=== PATIENT | male | born 1980 | race Caucasian/White ===

== ENCOUNTER 2018-11-23 12:42 | Emergency (ER) | payer BC ==
[2018-11-23 14:13] LABS: ABS Basophils 0.1 10^3/ul (0-0.2); ABS Eosinophils 0 10^3/ul (0-0.6); ABS Lymphocytes 1.8 10^3/ul (1.0-4.8); ABS Monocytes 0.6 10^3/ul (0-0.8); ABS Neutrophils 6.2 10^3/ul (1.5-7.7); ABS Nucleated RBC 0 10^3/ul; Eosinophil % 0.4 %; Hematocrit 46 % (36-46); Lymphocyte % 20.2 %; Mean Corpuscular HGB Conc 35 g/dL (31-36); Mean Corpuscular Hemoglobin 31 pg (27-31); Mean Corpuscular Volume 90 fL (80-94); Mean Platelet Volume 8.4 fL (7.4-10.4); Nucleated Red Blood Cells % 0.1; Platelet Count 319 10^3/uL (150-450); Red Blood Count 5.11 10^6 /uL (4.18-5.48); Red Cell Distribution Width 13 % (10.5-15); White Blood Count 8.7 10^3/uL (3.5-10.8)
[2018-11-23 14:29] LABS: Troponin I 0.01 ng/mL (<0.04)
[2018-11-23 15:07] LABS: Albumin 4.5 g/dL (3.2-5.2); Albumin/Globulin Ratio 1.4 (1-3); BUN/Creatinine Ratio 15.4 (8-20); Calcium 9.7 mg/dL (8.6-10.3); EGFR African American 97.2 (>60); EGFR Non-African American 80.4 (>60); Globulin 3.2 g/dL (2-4); Total Bilirubin 0.5 mg/dL (0.2-1.0); Total Protein 7.7 g/dL (6.4-8.9)
--- NOTE | 2018-11-23 15:15 | ED ---
Palpitations / Dysrhythmia - HPI Summary HPI Summary: Patient is a 38 y/o male who presents to the ED c/o palpitations. Over the past few days hes had intermittent palpitations, described as irregular. This morning he also c/o FARIAS and fatigue. Patient went to the where an EKG revealed a slightly irregular rhythm. He denies any CP, abdominal pain, N/V, fever, rhinorrhea, sore throat, cough, or LE edema. He denies any prior hx of arrhythmia. PMHx benign thyroid nodule and HLD. FHx arrhythmia (father). - History of Current Complaint Chief Complaint: EDDysrhythmPalp Time Seen by Provider: 11/23/18 14:44 Hx Obtained From: Patient Onset/Duration: Gradual Onset, Lasting Days - 2-3 Timing: Intermittent Episodes Lasting: Character: Irregular Aggravating: Nothing Alleviating: Nothing Associated Signs & Symptoms: Negative - Allergy/Home Medications Allergies/Adverse Reactions: Allergies Allergy/AdvReac Type Severity Reaction Status Date / Time No Known Allergies Allergy Verified 11/23/18 12:48 Home Medications: Home Medications Atorvastatin* [Lipitor*] 10 mg PO DAILY 11/23/18 [History Confirmed 11/23/18] Cholecalciferol (Vitamin D3) [Vitamin D3] 1,000 unit PO DAILY 11/23/18 [History Confirmed 11/23/18] Icosapent Ethyl [Vascepa] 1 gm PO BID 11/23/18 [History Confirmed 11/23/18] PMH/Surg Hx/FS Hx/Imm Hx Endocrine/Hematology History: Reports: Hx Thyroid Disease - benign thyroid nodule Cardiovascular History: Reports: Hx Hypercholesterolemia Infectious Disease History: No Infectious Disease History: Denies: Traveled Outside the [place] in Last 30 Days - Family History Known Family History: Positive: Cardiac Disease - arrhythmia - father - Social History Alcohol Use: Occasionally Hx Substance Use: No Substance Use Type: Reports: None Hx Tobacco Use: No Smoking Status (MU): Never Smoked Tobacco Review of Systems Positive: Fatigue. Negative: Fever Negative: Sore Throat, Nasal Discharge Positive: Palpitations. Negative: Chest Pain Negative: Cough Negative: Abdominal Pain, Vomiting, Nausea Negative: Edema - LE Positive: Headache All Other Systems Reviewed And Are Negative: Yes Physical Exam - Summary Physical Exam Summary: Constitutional: Well-developed, Well-nourished, Alert. (-) Distressed Skin: Warm, Dry HENT: Normocephalic; Atraumatic Eyes: Conjunctiva normal Neck: Musculoskeletal ROM normal neck. (-) JVD, (-) Stridor, (-) Tracheal deviation Cardio: Rhythm regular, rate normal, Heart sounds normal; Intact distal pulses; The pedal pulses are 2+ and symmetric. Radial pulses are 2+ and symmetric. (-) Murmur Pulmonary/Chest wall: Effort normal. (-) Respiratory distress, (-) Wheezes, (-) Rales Abd: Soft, (-) tenderness, (-) Distension, (-) Guarding, (-) Rebound Musculoskeletal: (-) Edema Lymph: (-) Cervical adenopathy Neuro: Alert, Oriented x3 Psych: Mood and affect Normal Triage Information Reviewed: Yes Vital Signs On Initial Exam: Initial Vitals Temp Pulse Resp BP Pulse Ox 99.1 F 87 16 147/92 98 11/23/18 12:45 11/23/18 12:45 11/23/18 12:45 11/23/18 12:45 11/23/18 12:45 Vital Signs Reviewed: Yes Diagnostics - Vital Signs Vital Signs Temp Pulse Resp BP Pulse Ox 11/23/18 14:48 82 18 154/103 98 11/23/18 12:45 99.1 F 87 16 147/92 98 - Laboratory Lab Results: Lab Results 11/23/18 11/23/18 11/23/18 Range/Units 13:47 13:47 13:47 WBC 8.7 (3.5-10.8) 10^3/uL RBC 5.11 (4.18-5.48) 10^6 /uL Hgb 16.0 (14.0-18.0) g/dL Hct 46 (36-46) % MCV 90 (80-94) fL MCH 31 (27-31) pg MCHC 35 (31-36) g/dL RDW 13 (10.5-15) % Plt Count 319 (150-450) 10^3/uL MPV 8.4 (7.4-10.4) fL Neut % (Auto) 71.8 % Lymph % (Auto) 20.2 % [place] % (Auto) 7.0 % Eos % (Auto) 0.4 % Baso % (Auto) 0.6 % Absolute Neuts (auto) 6.2 (1.5-7.7) 10^3/ul Absolute Lymphs (auto) 1.8 (1.0-4.8) 10^3/ul Absolute Monos (auto) 0.6 (0-0.8) 10^3/ul Absolute Eos (auto) 0 (0-0.6) 10^3/ul Absolute Basos (auto) 0.1 (0-0.2) 10^3/ul Absolute Nucleated RBC 0 10^3/ul Nucleated RBC % 0.1 D-Dimer, Quantitative < 200 (Less Than 230) ng/mL Sodium 140 (135-145) mmol/L Potassium 4.0 (3.5-5.0) mmol/L Chloride 103 (101-111) mmol/L Carbon Dioxide 28 (22-32) mmol/L Anion Gap 9 (2-11) mmol/L BUN 16 (6-24) mg/dL Creatinine 1.04 (0.67-1.17) mg/dL Est GFR ( Amer) 97.2 (>60) Est GFR (Non-Af Amer) 80.4 (>60) BUN/Creatinine Ratio 15.4 (8-20) Glucose 101 H (70-100) mg/dL Calcium 9.7 (8.6-10.3) mg/dL Total Bilirubin 0.50 (0.2-1.0) mg/dL AST 21 (13-39) U/L ALT 38 (7-52) U/L Alkaline Phosphatase 94 (34-104) U/L Troponin I 0.01 (<0.04) ng/mL Total Protein 7.7 (6.4-8.9) g/dL Albumin 4.5 (3.2-5.2) g/dL Globulin 3.2 (2-4) g/dL Albumin/Globulin Ratio 1.4 (1-3) Result Diagrams: 11/23/18 13:47 11/23/18 13:47 Lab Statement: Any lab studies that have been ordered have been reviewed, and results considered in the medical decision making process. - EKG 14:07 Cardiac Rate: NL - 87 bpm EKG Rhythm: Sinus Rhythm Summary of EKG Findings: Normal sinus rhythm at 87 bpm, normal [place], normal QRS, normal QTc, frequent PVCs, normal ST, normal T-waves. Re-Evaluation - Re-Evaluation First Eval Re-Evaluation Time: 15:33 Change: Unchanged Comment: Discussed plan of care. Pt feels better after the medications. Course/Dx - Course Course Of Treatment: Patient is a 38 y/o male who presents to the ED c/o intermittent palpitations, FARIAS, and fatigue. A physical exam was normal. An EKG revealed a rate of 87 bpm and PVCs. In the course patient was given Benadryl, Toradol, and Reglan. Bloodwork without any abnormalities. Final dx is PVCs. Patient is discharged and is agreeable with this plan. - Diagnoses Provider Diagnoses: PVCs (premature ventricular contractions) Discharge - Sign-Out/Discharge Documenting (check all that apply): Patient Departure - Discharge Patient Received Moderate/Deep Sedation with Procedure: No - Discharge Plan Condition: Good Disposition: HOME Patient Education Materials: Premature Ventricular Contractions (ED) Print Language: [place] Referrals: No Primary Care Phys,NOPCP [Primary Care Provider] - - Billing Disposition and Condition Condition: GOOD Disposition: Home - Attestation Statements Document Initiated by Scribe: Yes Documenting Scribe: Mandy Holman Provider For Whom Alee is Documenting (Include Credential): Teri Keenan MD Scribe Attestation: IMandy, sadieed for Teri Garvin MD on 11/23/18 at 2243. Scribe Documentation Reviewed: Yes Provider Attestation: The documentation as recorded by the Mandy blackburn accurately reflects the service I personally performed and the decisions made by me, Teri Keenan MD Status of Scribe Document: Viewed
[2018-11-23] MEDS ORDERED: diPHENhydraMINE IV* 25 MG in NS 0.9% 50 ML* 50 ML IVPB ONE (15:25)
[2018-11-23] MEDS ORDERED: Metoclopramide IV* 5 MG/ML 2 ML VIAL IV ONE (15:25)
[2018-11-23] MEDS ORDERED: Ketorolac INJ* 30 MG/ML 1 ML VIAL IV PUSH ONE (15:25)
[2018-11-23 15:37] VITALS: BP 125/85
== END 2018-11-23 15:36 | disposition home or self-care (01) ==
LOC: ED 12:42
DX: I49.3 Ventricular premature depolarization (principal); E78.00 Pure hypercholesterolemia, unspecified; E07.9 Disorder of thyroid, unspecified
CPT/HCPCS: 36415; 80053; 83605; 84484; 85025; 85379; 93005; 99282; J1200; J1885; J2765